=== PATIENT | male | born 1950 | race Hispanic/Latino ===

== ENCOUNTER 2017-10-31 09:32 | Emergency (ER) | payer OTHER ==
[~2017-10-31 09:32] MED LIST: HYDR-2534 PO; IBUP200C5 PO; LOSA100T20 PO; MULT1CAP32 PO
[2017-10-31] MEDS ORDERED: KETOROLAC TROMETHAMINE 30MG/ML ONE (10:59)
== END 2017-10-31 12:16 | disposition home or self-care (01) ==
LOC: EDH 09:32
DX: S39.012A Strain of muscle, fascia and tendon of lower back, initial encounter (principal); I10 Essential (primary) hypertension; E78.5 Hyperlipidemia, unspecified; Z88.0 Allergy status to penicillin; X50.0XXA Overexertion from strenuous movement or load, initial encounter; Y93.89 Activity, other specified; Y92.89 Other specified places as the place of occurrence of the external cause; Y99.8 Other external cause status
CPT/HCPCS: 72100; 96372; 99284; J1885